=== PATIENT | male | born 1970 | race Hispanic/Latino ===

== ENCOUNTER 2019-10-15 08:19 | Inpatient (IN) | payer OTHER, SELFPAY ==
[~2019-10-15] VITALS: Ht 167.6 cm; Wt 108.4 kg
[2019-10-15 09:38] LABS: BASOPHILS % (AUTO) 0.2 % (0.0-5.0); EOSINOPHILS % (AUTO) 0.6 % (0.0-8.0); HEMATOCRIT 44.4 % (42-54); LYMPHOCYTES % (AUTO) 7.5 % (21.0-51.0); MEAN CORPUSCULAR HEMOGLOBIN 30.9 pg (27.0-33.0); MEAN CORPUSCULAR HGB CONC 35.1 g/dL (32.0-36.0); MEAN CORPUSCULAR VOLUME 87.9 fL (79-99); NEUTROPHILS % (AUTO) 83.2 % (40.0-77.0); PLATELET COUNT (AUTO) 223 K/uL (130-400); RED BLOOD CELL COUNT(AUTO) 5.05 MIL/uL (4.50-6.20); RED CELL DISTRIBUTION WIDTH 11.7 % (11.0-15.5); WHITE BLOOD COUNT (AUTO) 18.7 K/uL (4.8-10.8)
[2019-10-15] MEDS ORDERED: SODIUM CHLORIDE 0.9% 1000ML 1,000 ML IV ONE ×2 (09:52→10:35)
[2019-10-15] MEDS ORDERED: ALBUTEROL INHALER 90MCG/INH IH ONE (09:52)
[2019-10-15 10:04] LABS: INR 0.96 (0.85-1.15); PARTIAL THROMBOPLASTIN TIME 29.1 SEC (26.3-35.5); PROTHROMBIN TIME 10.4 SEC (9.6-11.6)
[2019-10-15 10:16] LABS: ABG BASE EXCESS 0.9 mmol/L (-2.0-3.0); ABG OXYGEN SATURATION 92.9 % (95.0-99.0); ABG PCO2 43 mmHg (35-48)
[2019-10-15 10:16] LABS: ALANINE AMINOTRANSFERASE 75 U/L (12-78); ALBUMIN 3.5 g/dL (3.5-5.0); ASPARTATE AMINOTRANSFERASE 32 U/L (10-37); BILIRUBIN,TOTAL 0.8 mg/dL (0.2-1.0); CARBON DIOXIDE 30 mmol/L (21-32); CHLORIDE 100 mmol/L (101-111); CREATINE KINASE, TOTAL 271 U/L (21-232); CREATININE 1.1 mg/dL (0.5-1.5); GLOMERULAR FILTR. RATE CALC 76 mL/min (>60); GLUCOSE,RANDOM 170 mg/dL (70-105); MYOGLOBIN 105 ng/mL (10-92); POTASSIUM 3.8 mmol/L (3.5-5.1); SODIUM SERUM 135 mmol/L (136-145); TOTAL PROTEIN, SERUM 8.3 g/dL (6.0-8.3); TROPONIN I < 0.04 ng/mL (0.00-0.06); UREA NITROGEN, BLOOD 23 mg/dL (7-18)
[2019-10-15 10:30] LABS: APPEARANCE,URINE Clear (CLEAR); BILIRUBIN,URINE Negative (NEGATIVE); COLOR,URINE Dark Yellow (YELLOW); GLUCOSE, URINE (UA) Negative (NEGATIVE); KETONES,URINE Negative (NEGATIVE); LEUKOCYTE ESTERASE ,URINE Negative (NEGATIVE); NITRATE,URINE Negative (NEGATIVE); OCCULT BLOOD,URINE Negative (NEGATIVE); PROTEIN,URINE POS 1+ mg/dL (NEGATIVE)
[2019-10-15] MEDS ORDERED: DEXAMETHASONE SOD PHOSPHATE 4 MG/ML 5ML VIAL ONE (10:35)
[2019-10-15] MEDS ORDERED: CEFTRIAXONE SODIUM 1 GM ONE ×2 (10:35→19:43)
[2019-10-15] MEDS ORDERED: AZITHROMYCIN 500MG+NS 250ML 250 ML IV ONE (10:35)
[2019-10-15 11:35] LABS: BACTERIA,URINE None Seen /HPF (None Seen); RBC,URINE 0-1 /HPF (0-1); SQUAMOUS EPITHELIAL CELL,UR 0-2 /HPF (0-2); WBC,URINE 0-1 /HPF (0-1)
[2019-10-15] MEDS ORDERED: ERGOCALCIFEROL (VITAMIN D2) 50,000 UNIT CAPSULE PO ONE (14:00)
[2019-10-15] MEDS ORDERED: DOXYCYCLINE 100MG+NS 250ML IV SCH (14:00)
[2019-10-15] MEDS ORDERED: ERGOCALCIFEROL (VITAMIN D2) 50,000 UNIT CAPSULE ONE (15:09)
[2019-10-15] MEDS ORDERED: ENOXAPARIN SODIUM 40 MG/0.4 ML SYRINGE SQ ONE (15:10)
[2019-10-15] MEDS ORDERED: DOXYCYCLINE 100MG+NS 250ML 250 ML IV ONE ×2 (15:11→19:43)
[2019-10-15] MEDS ORDERED: ACETAMINOPHEN 325 MG TAB PO PRN (17:15)
[2019-10-15] MEDS ORDERED: BENZONATATE 100 MG CAPSULE PO PRN (17:15)
[2019-10-15] MEDS ORDERED: ONDANSETRON HCL 4 MG/2 ML VIAL IVP PRN (17:15)
[2019-10-15] MEDS ORDERED: METHYLPREDNISOLONE SOD SUCC 40MG/ML 1ML ONE (19:42)
[2019-10-15] MEDS: METHYLPREDNISOLONE SOD SUCC 40MG/ML 1ML IVP SCH (21:45)
[2019-10-15] MEDS: CEFTRIAXONE SODIUM 1 GM IVP SCH (21:45)
[2019-10-16] MEDS ORDERED: METHYLPREDNISOLONE SOD SUCC 40MG/ML 1ML ONE ×2 (04:51→08:19)
[2019-10-16 07:06] LABS: BASOPHILS % (AUTO) 0.1 % (0.0-5.0); HEMATOCRIT 43.5 % (42-54); LYMPHOCYTES % (AUTO) 7.5 % (21.0-51.0); MEAN CORPUSCULAR HEMOGLOBIN 30.3 pg (27.0-33.0); MEAN CORPUSCULAR HGB CONC 34.3 g/dL (32.0-36.0); MEAN CORPUSCULAR VOLUME 88.4 fL (79-99); MONOCYTES % (AUTO) 3.8 % (3.0-13.0); PLATELET COUNT (AUTO) 223 K/uL (130-400); RED BLOOD CELL COUNT(AUTO) 4.92 MIL/uL (4.50-6.20); RED CELL DISTRIBUTION WIDTH 11.6 % (11.0-15.5); WHITE BLOOD COUNT (AUTO) 15.6 K/uL (4.8-10.8)
[2019-10-16 07:28] LABS: ALBUMIN 2.8 g/dL (3.5-5.0); BILIRUBIN,TOTAL 0.5 mg/dL (0.2-1.0); CREATININE 0.9 mg/dL (0.5-1.5); POTASSIUM 4.5 mmol/L (3.5-5.1); TOTAL PROTEIN, SERUM 7.4 g/dL (6.0-8.3)
[2019-10-16] MEDS ORDERED: DOXYCYCLINE HYCLATE 100 MG TABLET PO ONE (08:20)
[2019-10-16] MEDS ORDERED: ZINC SULFATE 220 CAPSULE ONE (08:20)
[2019-10-16] MEDS ORDERED: ENOXAPARIN SODIUM 40 MG/0.4 ML SYRINGE SQ ONE (08:20)
[2019-10-16] MEDS ORDERED: ASCORBIC ACID 500 MG TAB ONE (08:20)
[2019-10-16] MEDS ORDERED: CEFTRIAXONE SODIUM 1 GM ONE (08:21)
[2019-10-16 09:56] LABS: CRP QUANTITATIVE 200.8 mg/L (0.00-9.0)
[2019-10-16] MEDS ORDERED: PHARMACY COMMUNICATION MISC SCH (11:00)
[2019-10-16] MEDS ORDERED: IVERMECTIN 3 MG TAB PO SCH (11:15)
[2019-10-16] MEDS: METHYLPREDNISOLONE SOD SUCC 40MG/ML 1ML IVP SCH ×2 (21:00→22:18)
[2019-10-16 21:30] VITALS: BP 145/95
[2019-10-16] MEDS: ASCORBIC ACID 500 MG TAB PO SCH (21:45)
[2019-10-16] MEDS: ZINC SULFATE 220 CAPSULE PO SCH (21:45)
[2019-10-16] MEDS: ENOXAPARIN SODIUM 40 MG/0.4 ML SYRINGE SQ SCH (21:45)
[2019-10-16] MEDS: CEFTRIAXONE SODIUM 1 GM IVP SCH (21:45)
[2019-10-16] MEDS: DOXYCYCLINE HYCLATE 100 MG TABLET PO SCH ×2 (21:45→22:18)
[2019-10-17] VITALS: BP 124/83
[2019-10-17] MEDS: CEFTRIAXONE SODIUM 1 GM IVP SCH ×2 (02:52→14:10)
[2019-10-17 06:32] LABS: BASOPHILS % (AUTO) 0.2 % (0.0-5.0); HEMATOCRIT 45.8 % (42-54); LYMPHOCYTES % (AUTO) 6.5 % (21.0-51.0); MEAN CORPUSCULAR HEMOGLOBIN 30.7 pg (27.0-33.0); MEAN CORPUSCULAR HGB CONC 34.5 g/dL (32.0-36.0); MEAN CORPUSCULAR VOLUME 89.1 fL (79-99); MONOCYTES % (AUTO) 4.1 % (3.0-13.0); PLATELET COUNT (AUTO) 327 K/uL (130-400); RED BLOOD CELL COUNT(AUTO) 5.14 MIL/uL (4.50-6.20); RED CELL DISTRIBUTION WIDTH 11.4 % (11.0-15.5); WHITE BLOOD COUNT (AUTO) 18.6 K/uL (4.8-10.8)
[2019-10-17 07:25] LABS: ALBUMIN 2.9 g/dL (3.5-5.0); BILIRUBIN,TOTAL 0.4 mg/dL (0.2-1.0); CRP QUANTITATIVE 107.4 mg/L (0.00-9.0); POTASSIUM 4.6 mmol/L (3.5-5.1); TOTAL PROTEIN, SERUM 7.7 g/dL (6.0-8.3)
[2019-10-17 08:38] VITALS: BP 122/80
[2019-10-17] MEDS: ASCORBIC ACID 500 MG TAB PO SCH (09:48)
[2019-10-17] MEDS: METHYLPREDNISOLONE SOD SUCC 40MG/ML 1ML IVP SCH ×3 (09:48→20:08)
[2019-10-17] MEDS: DOXYCYCLINE HYCLATE 100 MG TABLET PO SCH ×2 (09:48→20:08)
[2019-10-17] MEDS: ENOXAPARIN SODIUM 40 MG/0.4 ML SYRINGE SQ SCH (09:50)
[2019-10-17 11:18] VITALS: BP 130/82
[2019-10-17] MEDS: ZINC SULFATE 220 CAPSULE PO SCH (14:10)
[2019-10-17 17:44] VITALS: BP 115/72
[2019-10-17 20:26] VITALS: BP 132/88
[2019-10-18 00:03] VITALS: BP 130/81
[2019-10-18] MEDS: CEFTRIAXONE SODIUM 1 GM IVP SCH ×2 (02:19→18:12)
[2019-10-18 04:31] VITALS: BP 131/92
[2019-10-18 06:54] LABS: BASOPHILS % (AUTO) 0.3 % (0.0-5.0); HEMATOCRIT 44.1 % (42-54); MEAN CORPUSCULAR HEMOGLOBIN 30.3 pg (27.0-33.0); MEAN CORPUSCULAR HGB CONC 34.7 g/dL (32.0-36.0); MEAN CORPUSCULAR VOLUME 87.3 fL (79-99); MONOCYTES % (AUTO) 5.1 % (3.0-13.0); NEUTROPHILS % (AUTO) 83.9 % (40.0-77.0); PLATELET COUNT (AUTO) 350 K/uL (130-400); RED BLOOD CELL COUNT(AUTO) 5.05 MIL/uL (4.50-6.20); RED CELL DISTRIBUTION WIDTH 11.4 % (11.0-15.5); WHITE BLOOD COUNT (AUTO) 18.6 K/uL (4.8-10.8)
[2019-10-18 07:19] LABS: ALBUMIN 2.8 g/dL (3.5-5.0); BILIRUBIN,TOTAL 0.4 mg/dL (0.2-1.0); CRP QUANTITATIVE 58.8 mg/L (0.00-9.0); POTASSIUM 4.7 mmol/L (3.5-5.1); TOTAL PROTEIN, SERUM 7.2 g/dL (6.0-8.3)
[2019-10-18 08:39] VITALS: BP 115/81
[2019-10-18] MEDS: METHYLPREDNISOLONE SOD SUCC 40MG/ML 1ML IVP SCH ×3 (10:23→21:42)
[2019-10-18] MEDS: ENOXAPARIN SODIUM 40 MG/0.4 ML SYRINGE SQ SCH (10:24)
[2019-10-18] MEDS: DOXYCYCLINE HYCLATE 100 MG TABLET PO SCH ×2 (10:24→21:42)
[2019-10-18] MEDS: ASCORBIC ACID 500 MG TAB PO SCH (10:24)
[2019-10-18 11:21] VITALS: BP 137/75
[2019-10-18 17:01] VITALS: BP 133/90
[2019-10-18] MEDS: ZINC SULFATE 220 CAPSULE PO SCH (18:12)
[2019-10-18 20:00] VITALS: BP 129/80
[2019-10-19] VITALS: BP 131/88
[2019-10-19 04:00] VITALS: BP 119/80
[2019-10-19] MEDS: CEFTRIAXONE SODIUM 1 GM IVP SCH ×2 (04:20→14:27)
[2019-10-19 09:12] VITALS: BP 127/93
[2019-10-19] MEDS: DOXYCYCLINE HYCLATE 100 MG TABLET PO SCH (09:55)
[2019-10-19] MEDS: METHYLPREDNISOLONE SOD SUCC 40MG/ML 1ML IVP SCH ×2 (09:56→14:27)
[2019-10-19] MEDS: ASCORBIC ACID 500 MG TAB PO SCH (09:56)
[2019-10-19] MEDS: ENOXAPARIN SODIUM 40 MG/0.4 ML SYRINGE SQ SCH (10:21)
[2019-10-19 10:51] VITALS: BP 120/89
[2019-10-19] MEDS: ZINC SULFATE 220 CAPSULE PO SCH (14:27)
[2019-10-19] MEDS ORDERED: DEXAMETHASONE 4 MG TAB PO SCH (15:15)
[2019-10-19] MEDS ORDERED: DEXA6TAB7 PO (15:47)
[2019-10-19] MEDS ORDERED: BENZ-39 PO (15:47)
[2019-10-19] MEDS ORDERED: ALBU8.5H8 IH (15:47)
[2019-10-19 16:19] VITALS: BP 132/95
== END 2019-10-19 20:47 | disposition home or self-care (01) | DRG 177 ==
LOC: EDH 08:19 → EDHIP 08:20 → 3AH 10-16 20:54 → 3BH 10-16 21:23
PROVIDERS: ADMIT Hospitalist; ATTEND Hospitalist
DX: U07.1 COVID-19 (principal); J12.89 Other viral pneumonia; J96.01 Acute respiratory failure with hypoxia; E66.9 Obesity, unspecified; Z68.38 Body mass index [BMI] 38.0-38.9, adult
CPT/HCPCS: 36415; 36600; 71045; 80053; 81001; 82550; 82728; 82803; 83605; 83615; 83874; 83880; 84145; 84484; 85025; 85378; 85610; 85730; 86140; 86900; 86901; 87040; 87088; 87486; 87581; 87633; 87798; 87804; 93005; 94760; 99291; G0378; J0456; J0696; J1100; J1650; J2920; J3490; J7030; J8540; U0003